=== PATIENT | male | born 1930 | race Caucasian/White ===

== ENCOUNTER → 2017-05-24 | Outpatient (CLI) | payer OTHER, MEDICARE ==
[~2017-05-24] MED LIST: ACETAMINOPHEN325 M1 PO; ALBUTEROL2.5 MG/0.5 INH; ALTACE PO; AMIODARONE HCL100 MG; ASPIRIN EC325 M1 PO; ASPIRIN EC81 M1 PO; ASPIRIN325 PO; CALCIUM 500 +1 EAC5 PO; CALCIUM 600 +1 EAC1 PO; CALCIUM 600 WI1 EAC5 PO; CLOPIDOGREL75 MG PO; COLACE100 MG PO; DEMADEX20 MG PO; DEX4 GLUCOSE4 GM PO; FLONASE16 GM NASAL; FUROSEMIDE 40 M40 M1 PO; GABAPENTIN100 MG PO; HUMALOG100 UNIT/1 SQ; HUMALOG100 UNIT/1 SUBQ; HYDROCORTISONE30 G9 TOP; LANTUS SUBQ; LASIX 20 MG TAB20 MG PO; LEVOTHYROXIN0.025 MG PO; MILK OF MA400 MG/5 M PO; MULTIVITAMINS PO; MULTIVITAMINS1 EAC7 PO; NEURONTIN 300300 M1 PO; NEURONTIN600 MG PO; NORVASC10 MG PO; NOVOLOG100 UNIT/1 SUBQ; PACERONE 200 M200 M1 PO; PROTONIX40 M2 PO; SENNA LAXATIVE8.6 MG PO; SENNA PO; SIMVASTATIN20 MG PO; SIMVASTATIN40 MG PO; SPS15 GM/60 M PO; SYNTHROID50 MCG PO; TEARS PURE DROP15 ML OPHTHALMIC; TIMOLOL MA0.5 %/5 M2 OPHTHALMIC; VITAMIN C + RO500 MG PO; VITAMIN E400 UNIT PO; VITCB500GO PO; ZESTRIL5 MG PO; [UNRECOGNIZED DRUG - REMARK] PO
== END ==
LOC: RAD 11:03 → SPEECH 11:03
DX: R13.12 Dysphagia, oropharyngeal phase (principal)